=== PATIENT | male | born 2000 | race Caucasian/White ===

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

== ENCOUNTER 2020-10-08 22:55 | Emergency (ER) | payer OTHER ==
[~2020-10-08] VITALS: Ht 180.3 cm; Wt 72.6 kg
== END 2020-10-09 02:26 | disposition home or self-care (01) ==
LOC: ER 22:55
DX: B27.90 Infectious mononucleosis, unspecified without complication (principal); R50.9 Fever, unspecified